=== PATIENT | female | born 1975 | race African-American/Black ===

== ENCOUNTER 2016-12-31 09:00 | Outpatient (CLI) | payer OTHER | END 2016-12-31 23:59 | disposition home or self-care (01) | LOC: D.MAMMO 09:00 | DX: Z12.31 Encounter for screening mammogram for malignant neoplasm of breast (principal) ==

== ENCOUNTER → 2017-02-21 16:45 | Outpatient (CLI) | payer OTHER | END | disposition home or self-care (01) | LOC: D.MAMMO 14:30 | DX: R92.8 Other abnormal and inconclusive findings on diagnostic imaging of breast (principal) ==

== ENCOUNTER → 2017-09-15 17:55 | Outpatient (CLI) | payer OTHER | END | disposition home or self-care (01) | LOC: D.MRI 17:55 | DX: S83.231A Complex tear of medial meniscus, current injury, right knee, initial encounter (principal) ==

== ENCOUNTER → 2018-04-26 20:15 | Outpatient (CLI) | payer OTHER | END | disposition home or self-care (01) | LOC: D.MAMMO 16:15 | DX: Z12.31 Encounter for screening mammogram for malignant neoplasm of breast (principal) ==

== ENCOUNTER 2020-06-23 16:25 | Outpatient (CLI) | payer OTHER ==
[2020-04-03 06:13] VITALS: BMI 37.3
[~2020-06-23 16:25] MED LIST: BREO ELLIPTA 11 EACH INH; HCTZ25 MG PO; SINGULAIR10 MG PO
== END 2020-06-23 23:59 | disposition home or self-care (01) ==
LOC: D.MAMMO 16:25
PROVIDERS: ATTEND Family Medicine
DX: Z12.31 Encounter for screening mammogram for malignant neoplasm of breast (principal)